=== PATIENT | female | born 1950 | race Caucasian/White ===

== ENCOUNTER → 2020-05-16 08:31 | Outpatient (BNVA) | payer MEDICARE, BC, SELFPAY | PROVIDERS: Visit Provider Specialist | DX: G43.711 Chronic migraine without aura, intractable, with status migrainosus (principal); R27.0 Ataxia, unspecified; S09.90XA Unspecified injury of head, initial encounter | CPT/HCPCS: 99204 ==

== ENCOUNTER → 2020-06-27 07:54 | Outpatient (BNVA) | payer MEDICARE, BC, SELFPAY | PROVIDERS: Visit Provider Specialist | DX: R42 Dizziness and giddiness (principal); S09.90XA Unspecified injury of head, initial encounter; G43.711 Chronic migraine without aura, intractable, with status migrainosus; Y93.9 Activity, unspecified | CPT/HCPCS: 95816 ==

== ENCOUNTER → 2020-07-27 08:57 | Outpatient (BNVA) | payer MEDICARE, BC, SELFPAY | PROVIDERS: PCP Family Medicine; Visit Provider Specialist | DX: R41.9 Unspecified symptoms and signs involving cognitive functions and awareness (principal); G31.83 Neurocognitive disorder with Lewy bodies; F02.80 Dementia in other diseases classified elsewhere, unspecified severity, without behavioral disturbance, psychotic disturbance, mood disturbance, and anxiety; R42 Dizziness and giddiness | CPT/HCPCS: 96116; 99214 ==

== ENCOUNTER 2020-12-28 09:43 | Outpatient (CLI) | payer MEDICARE, BC, SELFPAY ==
--- NOTE | 2020-12-28 11:00 | MR_ITS ---
WS: [id number] MRA ANGIOGRAPHY [place] HISTORY: R42 Dizziness and giddiness COMPARISON: None available. TECHNIQUE: 3-D MR angiography is performed of the [place]. All images are reviewed including source images. Distal vertebral and basilar arteries are intact with no significant stenosis or plaque. Minimally do minant LEFT vertebral artery. Posterior cerebral arteries are normal course and caliber. Posterior co mmunicating arteries are both patent. Intracranial portion of the internal carotid arteries are normal course and caliber. No significant a therosclerosis, stenosis or aneurysm identified. Middle and anterior cerebral arteries are both paten t with no significant disease. Anterior communicating artery is also normal. No mass or mass effect at the cerebellopontine angles. No increase fluid in the expected location of the mastoid air cells or internal auditory canals. MR/MR angio head wo con [id number] IMPRESSION: Normal MRA [place]. No aneurysms or occlusions.
--- NOTE | 2020-12-28 11:00 | MR_ITS ---
WS: [id number] MRI BRAIN WITHOUT CONTRAST HISTORY: R42 - Dizziness and giddiness COMPARISON: None available. TECHNIQUE: Diffusion imaging, multiplanar T1, T2 and FLAIR imaging obtained. No evidence for acute infarct or hemorrhage. Best-white matter differentiation is normal. There is extensive T2 and FLAIR signal hyperintensities throughout the white matter. Both in the subc ortical and periventricular and deep white matter distribution. Minimal FLAIR signal hyperintensities in the barbi. No prior large territory infarct. No lacunar infarcts are identified. Ventricles and extra-axial spaces are normal. No inferior displacement of cerebellar tonsils. The sella turcica and pituitary gland are unremarkabl e. Posterior fossa is also unremarkable. Dural venous sinuses and [place] demonstrate no abnormality on this unenhanced studies. Paranasal sinuses: Clear. Mastoid air cells: Normal. Calvarium and scalp: Intact. MR/MR head wo con* [id number] IMPRESSION: 1. No acute infarct, hemorrhage or significant edema. 2. There is extensive T2 and FLAIR signal hyperintensities throughout the whit e matter. More than expected for age. Differential includes changes from hypert ension, migraines and advanced small vessel microischemic disease.
== END 2020-12-28 09:44 | disposition home or self-care (01) ==
LOC: RADSHAW 09:49
PROVIDERS: PCP Family Medicine; Visit Provider Specialist
DX: R42 Dizziness and giddiness (principal); R51.9 Headache, unspecified
CPT/HCPCS: 70544; 70551